=== PATIENT | male | born 1945 | race Caucasian/White ===

== ENCOUNTER → 2017-01-03 | Outpatient (CLI) | payer OTHER ==
[~2017-01-03] MED LIST: ASPI81TA11 PO; CARV3.12 PO; CLOP75TA PO; ESOM1CAP6 PO; TORS5TAB2 PO; UMEC1AER INH; ZOCO40TA PO
[2017-01-03 14:46] LABS: P2Y12 REACTION UNITS (PRU) 9 PRU (194-418)
== END ==
LOC: CLAB 14:02
PROVIDERS: ATTEND Internal Medicine Cardiovascular Disease
DX: E78.5 Hyperlipidemia, unspecified (principal); I10 Essential (primary) hypertension; Z79.899 Other long term (current) drug therapy
CPT/HCPCS: 36415; 85576

== ENCOUNTER 2017-04-10 05:19 | Day surgery (SDC) | payer OTHER ==
[~2017-04-10] VITALS: Ht 170.2 cm; Wt 58.1 kg
[2017-04-10 05:45] VITALS: BP 110/60; PULSE 80; RESP 20; O2SAT 96
[2017-04-10] MEDS ORDERED: NS 1000P @30 MLS/HR (KVO) IV SCH (06:00)
[2017-04-10] MEDS ORDERED: CARV3.12 PO (06:58)
[2017-04-10] MEDS ORDERED: CLOP75TA PO (06:58)
[2017-04-10] MEDS ORDERED: ASPI81TA11 PO (06:58)
[2017-04-10] MEDS ORDERED: TORS5TAB2 PO (06:58)
[2017-04-10] MEDS ORDERED: UMEC1AER INH (06:58)
[2017-04-10] MEDS ORDERED: ESOM1CAP6 PO (06:58)
[2017-04-10] MEDS ORDERED: ZOCO40TA PO (06:58)
[2017-04-10 07:17] LABS: AUTOMATED NEUTROPHIL # 4.2 TH/MM3 (1.8-7.7); BASOPHIL # 0.1 TH/MM3 (0-0.2); BASOPHIL % 0.8 % (0.0-2.0); EOSINOPHIL # 0.8 TH/MM3 (0-0.4); EOSINOPHIL % 11.2 % (0.0-4.0); HEMO FLAGS DIFF FINAL; LYMPH % 19.5 % (9.0-44.0); LYMPHOCYTE # 1.5 TH/MM3 (1.0-4.8); MEAN CELL VOLUME 91.5 FL (80.0-100.0); MEAN CORPUSCULAR HEMOGLOBIN 31.4 PG (27.0-34.0); MEAN CORPUSCULAR HGB CONC 34.3 % (32.0-36.0); MONO % 12.7 % (0.0-8.0); NEUT % 55.8 % (16.0-70.0); PLATELET COUNT 237 TH/MM3 (150-450); RED BLOOD COUNT 4.69 MIL/MM3 (4.50-5.90); RED CELL DISTRIBUTION WIDTH 13.4 % (11.6-17.2); WHITE BLOOD COUNT 7.5 TH/MM3 (4.0-11.0)
[2017-04-10 07:33] LABS: APTT (PATIENT) 27.3 SEC (24.3-30.1); PROTHROMBIN TIME - PATIENT 10.5 SEC (9.8-11.6)
[2017-04-10] MEDS ORDERED: MIDAZOLAM HCL 2 MG/2 ML VIAL ONE (07:34)
[2017-04-10] MEDS ORDERED: HEPARIN-NS/PF INJ 500 ML ONE (07:37)
[2017-04-10 07:40] LABS: BICARBONATE 24.7 MEQ/L (21.0-32.0); POTASSIUM 3.6 MEQ/L (3.5-5.1)
[2017-04-10] MEDS ORDERED: SODIUM CHLOR 0.9% 1000 ML INJ 1,000 ML IV SCH (08:33)
--- NOTE | 2017-04-10 08:39 | CATHPROC ---
[employer] HIS Report Study Information Study Number Scheduled Start Study Start [id number] 04/10/2017 Apr 10 2017 7:33AM Referring Institution Admit Source Facility Department 1 Other [facility] Physician and Clinical Staff Initial Rubin Ortiz Senior Medical Director Nacho Gilman,GIOVANI Other cathlab, cathlab Recorder Christian Mcneill RCIS(BS) Recorder Allan Rodriguez,RT(R) Scrub Israel Dougherty,RT(R) Procedures Performed Procedure Location (Site) Vessel Name Angiogram LV LV Ventricle Coronary Angiograms LCA Left Coronary Coronary Angiograms RCA Right Coronary Coronary Angiograms SVG-LAD Left Coronary Equipment Time Hospice Clinical Supervisor Description Size Mfg Part Number Used/Scraped TRANSDUCER, TRUWAVE 07:40 MEDINA DE LA GARZA * [id number] Used W/STOCKCOCK [id number] *[id number] *[id number] *[id number] PIGTAIL ANG. 145 INFINITI [id number] CATHETER *[id number] 07:40 [employer] PACK, CCL CUSTOM * Used *[id number] 07:40 [employer] PACER PEN, SKIN DUAL W/ RULER * [id number] Used [id number] 07:40 [employer] MEDICAL SHEATH, FR6.5 PRELUDE 11CM FR 6.5 038ACT Used *[id number] 07:40 [employer] MEDICAL WIRE, 3MMJ .035 180CM 180CM Used *[id number] 07:40 [employer]OLD, 4 PORT * Used *[id number] 08:02 [employer] OMNIPAQUE, 350 MG, 150ML 150ML [id number] Used 08:00 [employer] OMNIPAQUE, 350 MG, 50ML 50ML [id number] Used [id number] 07:40 [facility] BLANKET,WARM AIR CCL * Used *[id number] History: Current Medications Medication Dosage/Unit Route Frequency Last Date/Time Taken Beta Linda Statins (any) ASA PLAVIX History: Allergies Allergy Reaction Amoxicillin Brilinta Respiratory Failure Budesonide Doxycycline Formoterol Fumarate Nubain History: Risk Factors Family History of Hypertension Dyslipidemia Previous IA Previous Heart Failure Premature CAD Yes Yes Yes Yes No Prior Valve Prior PCI Prior PCIDate Prior CABG Prior CABGDate Surgery No Yes 03/17/2016 Yes 01/13/2008 Cerebrovascular Peripheral Artery Chronic Lung On Dialysis Diabetes Disease Disease Disease No No No Yes No History: Symptoms/Diagnosis Selection Items Chest pain History: CV Disease Selection Items Known CAD History: Stress Tests Stress or Imaging Studies Performed Yes Standard Exercise Stress Test No Stress Echo No Stress Test SPECT Stress Test SPECT Result Stress Test SPECT Ischemia Risk/Extent Yes Positive Intermediate Stress Test CMR No Cardiac CTA Coronary Calcium Score No No History: Other Disease Selection Items CAD HTN History: IA/CV Data Previous Cath Date Previous CABG Date 03/17/2016 01/13/2008 History: Other Current Smoker Method Packs a Day Years Used Pack Years Yes Cigarettes 1 58 58 Labs Hgb (g/dl) Hct (%) WBC (l/cumm) Platelets (thousands) 12.00-18.00 37.00-55.00 4.80-10.80 140.00-450.00 14.7 43 7.5 237 Glucose (mg/dl) BUN (mg/dl) Creatinine (mg/dl) BUN:Creatinine (1:x) 60.00-110.00 8.00-20.00 0.10-9.00 10.00-20.00 97 11 0.8 13.8 Na (meq/l) K (meq/l) 138.00-146.00 3.80-5.10 140 3.6 INR (PTT:PT) 0.50-2.00 1 CPK-MB (ng/ML) 0.00-7.00 Not Drawn Medication Medication Total Dose (Bolus/Oral) Medication Total Dosage/Unit 1% XYLOCAINE 20 mL Medications (Bolus/Oral) Medication Time Given Dosage/Unit Administered By Reason 1% XYLOCAINE 04/10/2017 7:54:58 AM 20 mL Rubin Forman 20 mL 1% XYLOCAINE given in lab by Rubin Forman in Right Groin via Subcutaneous. Medication (Drip) Medication Time Given Dosage/Unit Concentration/Unit Diluent (ml) Solutio n IV Solutions 04/10/2017 7:33:11 AM 0 mL (IV) 500 NaCl .9 Patient arrived on IV Solutions given by princess snáchez in Left Wrist via Peripheral IV. Pump/Drip Flow = 20 ml/hr using NaCl .9. Ordered by Rubin Forman. Initial Case Assessment Cardiovascular HR Rhythm NIBP Chest Pain 64 nsr 118/61 0 Edema Present Skin color Skin None Normal Warm Dry Circulatory - Right Pulses Dorsalis Pedis Femoral 2 2 Scale (0,1,2,3,4,d) Circulatory - Left Pulses Dorsalis Pedis Femoral 2 2 Scale (0,1,2,3,4,d) Neurological State Oriented to time-place- Alert Moves all extremities person Respiration - General Respiration Rate SpO2 (%) O2 (lpm) (B/min) 15 98 0 Final Case Assessment Cardiovascular HR Rhythm NIBP Chest Pain 69 Sinus 113/59 0 Edema Present Skin color Skin None Normal Warm Dry Circulatory - Right Pulses Dorsalis Pedis Femoral 2 2 Scale (0,1,2,3,4,d) Circulatory - Left Pulses Dorsalis Pedis Femoral 2 2 Scale (0,1,2,3,4,d) Neurological State Oriented to time-place- Alert Moves all extremities person Respiration - General Respiration Rate SpO2 (%) O2 (lpm) (B/min) 20 96 0 Chronological Log Time Study Chronological Log 7:33:00 Patient arrived via Bed. 7:33:02 Patient Name, D.O.B, / Armband Verified By R.N. 7:33:03 Consent signed by the physician and the patient and verified by the [facility] staff. 7:33:04 Verbal Stimulation=2 Physical Stimulation=2 Airway=2 Respiration=2 TOTAL=8. (0=absent, 1=li mited, 2=present) 7:33:04 Pre-op and post- op instructions given; patient acknowledges understanding of instructions. 7:33:05 Presedation assessment performed by [facility] RN. 7:33:06 Immediate Presedation assesment performed by physician. 7:33:06 Patient has been NPO for More than 6Hrs. 7:33:07 Skin Breakdown-none per patient 7:33:08 Patient Warmer Placed on the Table. 7:33:09 Arabella Prominences Protected 7:33:10 A # 20 IV was noted in the Wrist (left). Grade = 0 Patient arrived on IV Solutions given by cathlab, cathlab in Left Wrist via Peripheral IV. Pump /Drip Flow = 20 ml/hr 7:33:11 using NaCl .9. Ordered by Rubin Forman. 7:33:11 History and physical on the chart or being dictated. Vitals capture started with the following parameters, Patient=Adult, Interval=15 min, Initial P rheleph=594 mmHg, 7:38:14 Deflation Rate=5 mmHg 7:39:26 HR=68 bpm, IXNG=141/61 mmhg, SpO2=97.0 %, Resp=15 B/min, Pain=0, Sherrie=10, Maldonado=2 Assessment: Initial Case, HR=64 BPM, Rhythm=nsr, UYUQ=912/61 mmhg, Chest Pain=0, Edema=None, Col or=Normal, Skin = Warm, Dry Right Pulses: Sy Ped=2, Femoral=2 7:41:37 Left Pulses: Sy Ped=2, Femoral=2 Neurological: State=Alert, Ox3, DENNISON Respiration: Resp=15 B/min, SpO2=98 %, O2=0 lpm 7:43:01 Bilateral groins prepped with 2% chlorhexidine, and with a 3 min. waiting time. 7:43:48 HR=68 bpm, HIWL=532/66 mmhg, SpO2=97.0 %, Resp=11 B/min, Pain=0, Sherrie=10, Maldonado=2 7:44:02 MD arrived. 7:46:07 Reference ECG taken 7:49:26 HR=65 bpm, DQKL=797/62 mmhg, SpO2=97.0 %, Resp=13 B/min, Pain=0, Sherrie=10, Maldonado=2 7:51:23 Contrast Scanned 7:51:23 Immediate Presedation assesment performed by physician. 7:51:29 Pressure channel 1 zeroed. Time Out. Correct patient, correct procedure,correct physician, ,power injector loaded with cont rast with surgical team 7:53:21 present. Time Out Concurred by , individual staff in procedure 7:53:37 Case Start 7:53:38 Verbal Stimulation=2 Physical Stimulation=2 Airway=2 Respiration=2 TOTAL=8. (0=absent, 1=lanza ited, 2=present) 7:53:46 HR=65 bpm, CCKW=924/62 mmhg, SpO2=96.0 %, Resp=15 B/min, Pain=0, Sherrie=10, Maldonado=2 7:54:58 20 mL 1% XYLOCAINE given in lab by Rubin Forman in Right Groin via Subcutaneous. 7:57:30 Access site was Right Femoral Artery. 7:57:39 A SHEATH, FR6.5 PRELUDE 11CM FR 6.5 was advanced into the Fem Art (right) using the Percutan eous technique. A PIGTAIL ANG. 145 INFINITI CATHETER FR 6 was advanced over a wire. OMNIPAQUE, 350 MG, 150ML 150 ML was 7:57:42 used for injections. 7:58:49 HR=67 bpm, JQPC=376/61 mmhg, SpO2=96.0 %, Resp=16 B/min, Pain=0, Sherrie=10, Maldonado=2 8:00:15 The LV was injected at 10 cc/sec for a total of 30. OMNIPAQUE, 350 MG, 50ML 50ML used. Recorded Pressure: LV, HR=70, Condition=Condition 1 8:00:45 (Left Ventricle) LV 94/3/10 Recorded Pressure: LV, Ao, HR=69, Condition=Condition 1 8:01:07 (Left Ventricle) LV 113/6/20, (Aorta) Ao 111/48/73 8:01:19 Catheter was removed A JL 4.0 INFINITI CATHETER FR 6 was advanced over a wire. OMNIPAQUE, 350 MG, 150ML 150ML was use d for 8:02:00 injections. Recorded Pressure: Ao, HR=65, Condition=Condition 1 8:02:56 (Aorta) Ao 108/44/72 8:03:48 HR=63 bpm, RBBH=186/61 mmhg, SpO2=97.0 %, Resp=14 B/min, Pain=0, Sherrie=10, Maldonado=2 8:04:18 Catheter was removed A JL 3.5 INFINITI CATHETER FR 6 was advanced over a wire. OMNIPAQUE, 350 MG, 150ML 150ML was use d for 8:04:50 injections. 8:06:00 The LCA was injected and visualized at various angles. OMNIPAQUE, 350 MG, 150ML 150ML used. 8:07:34 Catheter was removed A JR 4.0 INFINITI CATHETER FR 6 was advanced over a wire. OMNIPAQUE, 350 MG, 150ML 150ML was use d for 8:07:59 injections. 8:08:50 HR=63 bpm, OFME=464/59 mmhg, SpO2=97.0 %, Resp=12 B/min, Pain=0, Sherrie=10, Maldonado=2 8:09:26 The RCA was injected and visualized at various angles. OMNIPAQUE, 350 MG, 150ML 150ML used. 8:11:00 The SVG-LAD was injected and visualized at various angles. OMNIPAQUE, 350 MG, 150ML 150ML us ed. 8:11:49 Catheter was removed 8:12:03 An injection in the Fem Art (right) was made through the SHEATH, FR6.5 PRELUDE 11CM FR 6.5 . 8:12:29 Case End 8:13:46 Sheath removed; pressure applied to access site. 8:13:51 HR=70 bpm, YWPB=087/59 mmhg, SpO2=96.0 %, Resp=25 B/min, Pain=0, Sherrie=10, Maldonado=2 Assessment: Final Case, HR=69 BPM, Rhythm=Sinus, FPXP=479/59 mmhg, Chest Pain=0, Edema=None, Color=Normal, Skin = Warm, Dry Right Pulses: Sy Ped=2, Femoral=2 8:14:40 Left Pulses: Sy Ped=2, Femoral=2 Neurological: State=Alert, Ox3, DENNISON Respiration: Resp=20 B/min, SpO2=96 %, O2=0 lpm 8:16:37 No case complications noted. 8:16:39 Cine recording checked. 8:17:31 Bedside Report will be given. 8:18:50 HR=65 bpm, GYLX=390/59 mmhg, SpO2=97.0 %, Resp=15 B/min, Pain=0, Sherrie=10, Maldonado=2 8:23:51 HR=66 bpm, ZZSB=130/57 mmhg, SpO2=96.0 %, Resp=11 B/min, Pain=0, Sherrie=10, Maldonado=2 8:28:52 HR=65 bpm, HNSZ=044/58 mmhg, SpO2=95.0 %, Resp=12 B/min, Pain=0, Sherrie=10, Maldonado=2 8:33:53 HR=77 bpm, NIBP=93/53 mmhg, SpO2=97.0 %, Resp=15 B/min, Pain=0, Sherrie=10, Maldonado=2 8:34:06 Vitals capture stopped. 8:34:15 Sterile dressing applied to site 8:36:05 Patient moved to stretcher End Study - Contrast Media Used In Study Contrast Total Opened (mL) Total Used (mL) Total Wasted (mL) Omnipaque 200 90 110 End Study - Maximum Contrast Load Max Contrast Load (mL) 362.5 End Study - Radiation Exposure Fluoro Time (minutes) 4.3 End Study - Patient Disposition Complications Transferred To Interventional Outcome No Outpatient Bed No attempt made
[2017-04-10] MEDS ORDERED: ONDANSETRON HCL 4 MG/2 ML VIAL IV PRN (08:45)
[2017-04-10] MEDS ORDERED: BACITRACIN OINT 0.9 GM PKT TOP ONE (08:45)
[2017-04-10] MEDS ORDERED: oxyCODONE/ACETAMINOPHEN 5 MG/325 MG TAB PO PRN (08:45)
--- NOTE | 2017-04-10 08:57 | MA ---
cc: TERI SIMMONS M.D. [facility]MA LARA DATE 04/10/2017 PROCEDURES PERFORMED Left heart catheterization, left ventriculography, coronary angiography, bypass graft angiography, right femoral arteriography. BRIEF HISTORY Gregor Delgado is a 71-year-old man with known coronary artery disease. He had coronary artery bypass surgery January 13, 2009. Unfortunately, he continues to smoke. He has had bilateral iliac stents. April 01, 2016, he underwent a very complex cath procedure outside of this area. His LAD was severely diseased. He had a 28 mm x 2.5 mm long stent in the mid-LAD and then had an unexpected proximal LAD perforation treated with a covered stent. This was a 3.0 x 18 mm stent. 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 He does have angina that is class III. Nuclear stress test mainly showed a large fixed defect. He needs to come off Plavix for urological surgery and so cardiac catheterization was indicated. DESCRIPTION OF PROCEDURE The patient was brought to the cardiac entry level lab technician in a fasting state. I chose to use the right femoral artery because of a very poor pulse in the left wrist and because his previous cath procedure had difficult guide backup requiring a guide liner. The right femoral pulse was somewhat thready. Using 1% lidocaine for local anesthesia, I was able to easily placed a 6-1/2 Cymro sheath. Left ventricular pressure was then recorded using a pigtail catheter followed by left ventriculography and then a pullback. Coronary angiography was then performed using a left 3.5 Yoni for left coronary artery (a left 4 Oyni catheter was too large). Right coronary angiography was completed using a right 4 Yoni catheter. Angiography of the only vein graft was performed using the right Yoni catheter. Angiography of the internal mammary artery bypass was not performed because it was known to be totally occluded from the cath he had one year ago. FINDINGS 1. Hemodynamics. Left ventricular pressure was 113/6 with an end-diastolic pressure that is elevated at 20. The aortic pressure is 108/44 with a mean of 72. There is no gradient during pullback from left ventricle to the aorta. 2. Left ventriculography, left ventriculography shows anterolateral and apical akinesis. Estimated ejection fraction is about 35% 3. Coronary angiography, left main coronary artery is diffusely narrowed and small caliber. The caliber of the left main is no bigger than the diagnostic catheter remaining about 2 mm. It is probably diseased 50% throughout its course. The left anterior descending artery is patent proximally and gives off one septal continuous process coffee roaster branch and is then completely occluded. There are visible stents seen in the proximal and mid LAD. The left circumflex artery gives off one major obtuse marginal branch which has a long 90% or greater proximal stenosis in it. The distal circumflex vessel is a very small branch. The right coronary artery is dominant and gives off a large posterior descending artery branch and a medium size posterolateral branch. Just beyond the first proximal bend in the right coronary artery are sequential 35% irregular stenoses that does not appear to be flow-limiting. The mid and distal right coronary artery appears smooth and normal as do the PDA and posterolateral branch. 4. Bypass grafts: The left internal mammary bypass graft to the LAD is noted to be totally occluded from a previous catheterization. The only remaining graft is a vein graft to the circumflex marginal branch. This graft comes off just above the marker on the aortic root. The graft is widely patent and fills the obtuse marginal branch well and it also provides a little bit of retrograde flow to the distal circumflex vessel. CONCLUSION 1. Mildly elevated left ventricular end-diastolic pressure. 2. Impaired LV function estimated ejection fraction 35%. 3. Total occlusion of the previous LAD stents. The LAD has a trace amount of wuaoh-pf-moce collaterals. This explains the findings on his EKG, echo and stress test. 4. Critical stenosis of the circumflex marginal branch, but remains well bypassed by a vein graft. 5. Mild to moderate disease of the proximal right coronary artery. RECOMMENDATIONS It is critically imperative that this patient quit smoking. He has been counseled on this multiple times by the undersigned. Regarding coming off Plavix for his urological surgery, the LAD is completely closed so he can come off Plavix for a full week prior to that procedure. MD ELIZABETH Quintanilla/VALERIY /8:27 AM /8:40 AM
[2017-04-10] MEDS ORDERED: IOHEXOL 350 MG/ML 100 ML BTL (for Cath Lab) OTHER ONE (14:41)
--- NOTE | 2017-04-10 16:52 | EKG ---
Date Performed: 04/10/2017 Time Performed: 06:43:28 PTAGE: 71 years EKG: Sinus rhythm with PAC(s). Rightward axis Possible anteroseptal infarct - age undetermined Lateral T wave changes are nonspecific Abnormal ECG NO PREVIOUS TRACING DOCTOR: Marshall Cabral Interpretating Date/Time 04/10/2017 16:51:38
== END 2017-04-10 14:52 | disposition home or self-care (01) ==
LOC: HDOC 05:19 → HDIC 05:28 → HDOC 14:52
PROVIDERS: ATTEND Internal Medicine Cardiovascular Disease
DX: I25.119 Atherosclerotic heart disease of native coronary artery with unspecified angina pectoris (principal); T82.897A Other specified complication of cardiac prosthetic devices, implants and grafts, initial encounter; I25.82 Chronic total occlusion of coronary artery; J44.9 Chronic obstructive pulmonary disease, unspecified; K21.9 Gastro-esophageal reflux disease without esophagitis; I10 Essential (primary) hypertension; E78.5 Hyperlipidemia, unspecified; I25.2 Old myocardial infarction; I73.9 Peripheral vascular disease, unspecified; I48.0 Paroxysmal atrial fibrillation; F17.200 Nicotine dependence, unspecified, uncomplicated; Z85.46 Personal history of malignant neoplasm of prostate; Z79.02 Long term (current) use of antithrombotics/antiplatelets; Z79.82 Long term (current) use of aspirin; Z88.1 Allergy status to other antibiotic agents; Z88.8 Allergy status to other drugs, medicaments and biological substances
CPT/HCPCS: 80048; 85025; 85610; 85730; 93005; 93459; C1769; C1893; J1644; J2250; Q9967